=== PATIENT | male | born 1985 | race Caucasian/White ===

== ENCOUNTER 2024-06-03 09:37 | Emergency (ER) | payer MEDICARE, MEDICAID ==
[~2024-06-03] VITALS: Ht 175.3 cm; Wt 74.8 kg
[~2024-06-03 09:37] MED LIST: HYDR1TAB PO; LAXATIVE PO; LORA1TAB PO; MAALOX PO; PANT40TA2 PO; ZOLP5TAB2 PO
[2024-06-03] MEDS ORDERED: CHLO473M3 PO (10:23)
[2024-06-03] MEDS ORDERED: AMOX-430 PO (10:23)
[2024-06-03] MEDS ORDERED: IBUP-1955 PO (10:23)
[2024-06-03 10:38] VITALS: BP 152/98; O2SAT 100
== END 2024-06-03 10:39 | disposition home or self-care (01) ==
LOC: ER 09:41
DX: K08.89 Other specified disorders of teeth and supporting structures (principal); Z79.2 Long term (current) use of antibiotics
CPT/HCPCS: A4606; A4663